=== PATIENT | female | born 1960 | race Caucasian/White ===

== ENCOUNTER → 2017-06-01 | Outpatient (CLI) | payer BC ==
[~2017-06-01] MED LIST: AMITIZA PO; ANAPROX DS550 M1 PO; ATIVAN PO; BACLOFEN10 MG; BACLOFEN10 MG PO; BACTRIM DS TABL1 TA1 PO; COLACE PO; DICLOFENAC PO; DICYCLOMINE HCL20 MG PO; FLEXERIL10 MG PO; HYDROCODON-ACE1 EAC5 PO; LEVAQUIN750 M1 PO; LORTAB 10-5001 EACH PO; LORTAB 10/500 T1 TAB; NEXIUM PO; NORCO 10-325 TA1 TAB PO; NUVIGIL250 MG PO; PANTOPRAZOLE SO40 MG PO; PHENERGAN25 M1 PO; PROZAC40 M1 PO; ROBINUL FORTE2 MG PO; SKELAXIN PO; STRATTERA40 MG PO; TOPAMAX; TOPAMAX PO; VOLTAREN75 MG PO; XANAX1 MG PO; [UNRECOGNIZED DRUG - REMARK]
--- NOTE | ~2017-06-01 | MR112 ---
[facility] A Service of [facility] & [facility] RADIOLOGY TEXT RESULTS PATIENT: NILDA JEWELL LOCATION: [facility] : 64 UNIT #: [id number] AGE: [address]: Napoleon Vazquez MD SEX: F ORDER DR: [id number] [address] [address] [id number] O MR#: [id number] Acc #: [id number] NAME: NILDA JEWELL : 1960 SEX: F STUDY DATE/TIME: 06/01/2017 8:48 UNIT: [facility] ROOM: STUDY DESCRIPTION: MR Lumbar WWo Contrast Attending Physician: Napoleon Vazquez M.D. Referring Physician: Napoleon Vazquez M.D. Ordering Physician: Napoleon Vazquez M.D. Primary Care Physician: Napoleon Vazquez M.D. MRI CENTER REPORT This report is preliminary unless electronic signature is present. EXAM Lumbar spine MRI with/without HISTORY Patient complains of increasing low back pain worse in the past 4 months and into the right lower extremity. Pain is similar to pain she had before surgery. Patient has a history of lumbar fusion in 2007 at [facility]. COMMENT MRI of the lumbar spine performed prior to and following intravenous administration of 16 mL of MultiHance. 1.5T wide-bore imaging technique was utilized. Plain film comparison is from 11/17/2011. Redemonstrated are postoperative changes of prior fusion at L5-S1. The patient has bilateral pedicle screws, vertical stabilization bars, and there is an intervertebral disc spacer. There is exaggeration of lumbar lordosis. Where not obscured by metal artifact, bone marrow signal intensity is normal. The conus medullaris terminates at L1 and is normal. There is concentric disc bulging and endplate spondylosis at T11-12 with a superimposed anterior protrusion/extrusion. Mild disc desiccation most apparent at T11-12. At L1-2, there is no significant abnormality. At L2-3, there is mild facet degenerative change with mild associated bilateral ligamentum flavum thickening and a minor posterior disc bulge. There is no canal stenosis. There is no foraminal impingement. At L3-4, there is moderate left and more severe right side facet arthritis. There is a broad posterior disc bulge and the combination of findings result in mild canal stenosis. There is mild mass effect on the diyr-wrjxclp-qlwm-right lateral recess. There is mild foraminal narrowing [facility] A Service of [facility] & [facility] RADIOLOGY TEXT RESULTS PATIENT: NILDA JEWELL LOCATION: [facility] : 64 UNIT #: [id number] AGE: [address]: Napoleon Vazquez MD SEX: F ORDER DR: bilaterally. At L4-5, there is some metal artifact. Allowing for this, there is approximately moderate facet degenerative change bilaterally. Only minimal posterior disc bulging. There is no canal stenosis. There is mild right-sided foraminal narrowing. At L5-S1, there has been prior surgery. This includes fusion changes discussed above as well as some component of posterior decompression. There is no residual or recurrent canal stenosis appreciated. There is a small amount of desiccated disc material or granulation tissue in the left paramedian location, but this results in only minimal mass effect on the left lateral recess. No recurrent extrusion is suspected. The foramina are partly obscured. There is probably some left foraminal narrowing. Following contrast administration, there is no pathologic nerve root enhancement. There is no evidence for arachnoiditis. IMPRESSION 1. Postoperative changes of prior fusion L5-S1 anteriorly/posteriorly with evidence of posterior decompression. No residual canal stenosis or recurrent extrusion is suspected. There is probably some left-sided foraminal narrowing, allowing for metal artifact. 2. Lumbar lordosis is exaggerated. 3. There is multiple-level degenerative disease at unoperated levels. Findings are probably most prominent at L3-4, where there is mild canal stenosis. Please refer to the [id number] discussion and correlate with the patient's symptoms. 4. No evidence for arachnoiditis or drainable fluid collection. Dictated by... Subha Bishop M.D. THIS IS AN ELECTRONICALLY VERIFIED REPORT Subha Bishop M.D. at 06/02/2017 8:57 AM SAC/psc TD: 06/01/2017 20:38 JOB #: [id number] MRI CENTER REPORT Page 1 of 1
== END | disposition home or self-care (01) ==
LOC: SMRI 08:19
DX: M51.16 Intervertebral disc disorders with radiculopathy, lumbar region (principal); G58.9 Mononeuropathy, unspecified; M40.56 Lordosis, unspecified, lumbar region; M48.06 Spinal stenosis, lumbar region; Z98.1 Arthrodesis status
CPT/HCPCS: 72158; A9581